=== PATIENT | male | born 1985 | race Caucasian/White ===

== ENCOUNTER 2023-10-30 08:49 | Outpatient (CLI) | payer OTHER, SELFPAY ==
--- NOTE | 2023-11-09 19:18 | WPDHOMESLEEP ---
Sleep Study - Home Unattended Date of Study: 10/30/23 Ordering Provider: Quoc Green DO Interpreting Provider: Payton Sims MD Home Sleep Study Type: Watch PAT Height: 1.75 m Weight: 99.79 kg Body Mass Index: 32.5 Neck Circumference (inches): 17.5 [place]: 7 Reason for Sleep Study Poor quality sleep Sleep History Ole Wallis is a 38-year-old man who says that he feels that he does not sleep at night. He was referred to Dr. Green for chest pain. He never awakens from sleep feeling short of breath. He occasionally wakes at night with heartburn, belching or coughing.??He never snores loudly enough that others complain. He occasionally stops breathing during the night. He frequently had morning headaches, improved with blood pressure medications. He never awakens feeling refreshed. He frequently has excessive daytime sleepiness. He does not have memory or concentration problems. He rarely has job problems related to sleepiness. He does not have problems with sexual functioning He never grinds his teeth at night. He occasionally feels bothered by pain during the day, never awakened by pain during the night. He frequently wakes up feeling stiff in the morning, and he frequently wakes feeling sore or achy. He occasionally awakens with pain in his neck, spine, or joints. He has fatigue, insomnia, headaches and palpitations. Since he started taking blood pressure medications, his morning headaches have improved. A significant portion of the sleep questionnaire did not arrive by fax so there are some missing responses,. This is not due to patient's effort. Habits:??Tobacco: Never smoker Alcohol: 10 drinks per week Recreational substances: none PMF Past Medical History Medical History (Updated 11/09/23 @ 19:28 by Payton Sims MD) RUSSELL (dyspnea on exertion) Hypertension Family History Family History (Updated 10/10/23 @ 09:06 by Avril Oliva CMA) Father Hypertension Acute myocardial infarction Grandparent Heart disease Chronic heart failure Mother Cancer Social History Social History (Updated 10/10/23 @ 09:08 by Avril Oliva CMA) Smoking packs per day: 0 Smoking cigarettes per day: 0.0 Smoking status: Never smoker Tobacco type: smokeless tobacco Smokeless tobacco user: chewing tobacco Alcohol intake: current Drinks per week: 10 Substance use: never Substance use type: does not use Medications Home Medications Medication Instructions Recorded Confirmed Type amlodipine 2.5 mg tablet 2.5 mg PO DAILY #30 tabs 10/10/23 10/10/23 Rx Sleep Procedure The sleep study was completed using [employer] a technically adequate device with seven channels: peripheral arterial tone, actigraphy, body position, snore, respiratory movement, pulse oximetry, sleep staging, and heart rate. Prior to using the device, the patient received verbal and written instructions for its application and was provided with the help desk phone number for additional telephonic instruction with 24-hour availability of qualified personnel to answer questions. Sleep Architecture The total recording time is 7 hours 9 minutes. The total sleep time is 6 hours 27 minutes. Sleep efficiency is 90%. Sleep latency is 16 minutes. REM latency is 88 minutes. The patient had 6 episodes of waking. Sleep architecture shows 17.9% deep sleep, 49.3% light sleep, and 32.8 % stage REM. The patient spent 154.5 minutes, 39.9 % of total sleep time in the supine position. Respiratory Analysis The overall AHI is 13.1. The central AHI is 0.5. The REM AHI was 20.6. There was no evidence of Malik-Brasher respirations. Oximetry Data The oxygen desaturation index is 13.1. The mean saturation is 92%, the lowest saturation is 86%, and the patient spent 5.6 minutes, 1.4% of the sleep time, below 88%. Snoring Profile Snoring was present, average intensity 41 dB. The patient snored abo
[2023-11-09 19:30] VITALS: BMI 32.5
== END 2023-10-31 07:30 | disposition home or self-care (01) ==
LOC: ANHCSM 08:50
PROVIDERS: PCP Emergency Medicine; Visit Provider Internal Medicine Cardiovascular Disease
DX: G47.10 Hypersomnia, unspecified (principal)
CPT/HCPCS: 95800